=== PATIENT | male | born 1940 | race Caucasian/White ===

== ENCOUNTER 2017-08-03 15:37 | Outpatient (CLI) | payer MEDICARE, BC | END 2017-08-03 15:38 | disposition home or self-care (01) | LOC: BICRAD 15:37 | PROVIDERS: ATTEND Family Medicine | DX: M54.5 Low back pain (principal); M47.896 Other spondylosis, lumbar region | CPT/HCPCS: 72100 ==

== ENCOUNTER 2018-09-23 20:26 | Emergency (ER) | payer MEDICARE, BC ==
--- NOTE | 2018-09-23 21:03 | RAD ---
EXAM: Chest 2 views: HISTORY: Cough COMPARISON: None. FINDINGS: There is a normal-sized cardiomediastinal silhouette. Biapical pleural thickening and increased inte rstitial markings are likely chronic. There is no evidence of consolidation, mass, or pleural effusion. The bones are unremarkable. IMPRESSION: No evidence of acute cardiopulmonary disease
== END 2018-09-23 21:22 | disposition home or self-care (01) ==
LOC: SCSER 20:26
DX: J06.9 Acute upper respiratory infection, unspecified (principal); E78.5 Hyperlipidemia, unspecified; Z79.899 Other long term (current) drug therapy
CPT/HCPCS: 71046; 87804

== ENCOUNTER 2020-03-13 16:51 | Emergency (ER) | payer MEDICARE, BC | END 2020-03-13 17:42 | disposition home or self-care (01) | LOC: ERS 16:51 | DX: S61.412D Laceration without foreign body of left hand, subsequent encounter (principal); E78.5 Hyperlipidemia, unspecified ==

== ENCOUNTER 2020-07-15 10:38 | Outpatient (CLI) | payer MEDICARE, BC | END 2020-07-15 10:39 | disposition home or self-care (01) | LOC: BICULT 10:38 | PROVIDERS: ATTEND Family Medicine | DX: M79.604 Pain in right leg (principal) ==

== ENCOUNTER 2021-09-29 12:05 | Outpatient (CLI) | payer MEDICARE, BC | END 2021-09-29 12:06 | disposition home or self-care (01) | LOC: BICRAD 12:05 | PROVIDERS: ATTEND Family Medicine | DX: M25.551 Pain in right hip (principal) ==